=== PATIENT | female | born 1985 | race Caucasian/White ===

== ENCOUNTER 2021-12-27 22:16 | Emergency (ER) | payer MEDICAID, SELFPAY ==
[2021-12-27 22:28] VITALS: BP 128/84; PULSE 77; RESP 18; TEMP 37.2; O2SAT 98; BMI 24.4
--- NOTE | 2021-12-27 22:36 | W.ED.DENTAL ---
HPI - Dental/Oral General: Chief complaint: Dental/Oral Stated complaint: Broken Tooth\Swollen Face Time Seen by Provider: 12/27/21 22:35 History of Present Illness: 36-year-old female comes in today with some right facial cheek swelling. Patient reports last night she had a upper molar break off. This morning she woke up with swelling and discomfort to the right facial cheek. Patient reports no difficulty swallowing. Patient appears in no acute distress. Patient appears nontoxic. Patient appears in moderate pain. Review of Systems General: Reports: 10 or more systems reviewed and unremarkable except in HPI and below ENMT: Reports: dental pain [facility] Female Reproductive History: Date of last menstrual period: 12/27/21 Physical Exam Const: COMMON NORMALS: alert HENMT: FACE & SINUS: edema (Right facial cheek) MOUTH: Normal oral and palatal mucosa present TEETH & GINGIVA: Yes abnormal tooth and associated gingiva (Right upper second molar fractured with dental decay) Neck/C-Spine: COMMON NORMALS: full ROM Resp: COMMON NORMALS: normal respiratory effort Cardio: COMMON NORMALS: regular rate RATE: regular rate Neuro: SENSORIUM/ORIENTATION: Yes alert Skin: COMMON NORMALS: no rashes or lesions noted GENERAL SKIN EXAM: no rashes or lesions noted Course Vital Signs: Vital signs: Vital Signs Temperature 97.8 F 12/27/21 23:02 Pulse Rate 81 12/27/21 23:02 Respiratory Rate 18 12/27/21 23:02 Blood Pressure 137/81 12/27/21 23:02 Pulse Oximetry 98 12/27/21 23:02 MDM - Dental/Oral Medical Decision Making 36-year-old female comes in today with complaints of right facial cheek swelling and fractured molar. On exam we note fair to poor dentition with multiple caries and decay. More prevalent noted in molars. There is a fracture to the second molar of the right upper jaw. Patient does have some mild redness to the gingiva. No obvious abscesses noted. Patient maintains airway, and no drooling is noted. Remainder of exam is unremarkable. Differential diagnosis includes dental fracture, dental pain, dental abscess. Reviewed exam with patient with recommendations for treatment and follow-up with dentist. Patient reported understanding agreed to plan. Discharge Plan Discharge Patient Disposition: Home Clinical Impression: Dental abscess Condition: Stable Prescriptions: New hydrocodone-acetaminophen 5-325 mg tablet 1 tab PO Q6H PRN (Reason: pain (scale score 7-10)) Qty: 6 0RF amoxicillin-pot clavulanate 875-125 mg tablet 1 tab PO BID Qty: 14 0RF Discharge Orders: Discharge ED (Routine); Ordered 12/27/21 Ordered By: Devon Marshall Discharge Diet: Usual diet Discharge Activity: Increase activity as tolerated Patient Instructions: Dental Abscess (ED) Activity Restrictions/Additional Instructions: Activity as tolerated. Drink plenty of fluids. Use acetaminophen or ibuprofen for pain to control it. Use hydrocodone for severe pain. Take Augmentin, amoxicillin with clavulanate, 1 tablet twice a day for 7 days. Follow-up with dentist for definitive care. 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
[2021-12-27] MEDS: amoxicillin-clav 875-125 mg Tablet 1 TAB PO (23:00)
[2021-12-27] MEDS: HYDROcodone-acetaminophen 5-325 mg Tablet 1 TAB PO (23:00)
[2021-12-27 23:02] VITALS: BP 137/81; PULSE 81; RESP 18; TEMP 36.6; O2SAT 98
== END 2021-12-27 23:03 | disposition home or self-care (01) ==
PROVIDERS: Emergency Provider Nurse Practitioner Family
DX: K04.7 Periapical abscess without sinus (principal)
CPT/HCPCS: 99283